=== PATIENT | female | born 1985 | race Caucasian/White ===

== ENCOUNTER 2017-10-18 20:35 | Emergency (ER) | END 2017-10-18 21:48 | disposition home or self-care (01) ==

== ENCOUNTER 2017-10-23 09:33 | Emergency (ER) | END 2017-10-23 13:15 | disposition home or self-care (01) ==

== ENCOUNTER 2018-06-09 15:49 | Emergency (ER) | payer MEDICAID ==
[~2018-06-09] VITALS: Ht 160 cm; Wt 82.6 kg
[~2018-06-09 15:49] MED LIST: CYCL10TA7 PO; HYDR-4011 PO; IBUP800T48 PO; IRON18TA PO; PRENAT PO
[2018-06-09 15:51] VITALS: Ht 160 cm; Wt 82.6 kg
--- NOTE | 2018-06-09 19:01 | ERD ---
ER Documentation Chief Complaint Chief Complaint ST x 3 days with cough HPI 33-year-old with no reported past medical or surgical history who presents with 3-day complaint of cough, sore throat, fever, generalized body pain, abdominal pain with coughing. No reported sick contacts. She states she had 2 children and at home were recently sick with flulike symptoms couple weeks ago. She otherwise denies chest pain, shortness of breath or dyspnea, nausea and vomiting, diarrhea, abdominal pain, urinary symptoms. BP and heart rate noted to be elevated on triage vitals but patient in NAD and denies any cardiac complaints at time of examination. ROS All systems reviewed and are negative except as per history of present illness. Medications Home Meds Active Scripts Azithromycin* (Zithromax*) 500 Mg Tablet, 500 MG PO DAILY for 3 Days, TAB Prov:ELISABETH HERNANDEZ PA-C 06/09/18 Hydrocodone/Acetaminophen (Dexter 5-325 Tablet) 1 Each Tablet, 1 TAB PO Q6H PRN for PAIN, #12 TAB Prov:JEN PARKINSON PA-C 10/23/17 Ibuprofen* (Motrin*) 800 Mg Tab, 800 MG PO Q6, #30 TAB Prov:YASMINE MORRIS PA-C 10/18/17 Cyclobenzaprine Hcl* (Cyclobenzaprine Hcl*) 10 Mg Tablet, 10 MG PO BID, #15 TAB Prov:YASMINE MORRIS PA-C 10/18/17 Reported Medications Iron (Iron) 18 Mg Tablet, 18 MG PO, TAB 01/01/16 Multivit/Min/Fol Ac/Iron/Pren* ( S*) 1 Tab Tab, 1 TAB PO DAILY, TAB 11/12/15 Allergies Allergies: Coded Allergies: No Known Drug Allergies (Verified Allergy, Unknown, 01/01/16) PMhx/Soc History of Surgery: No Anesthesia Reaction: No Hx Neurological Disorder: No Hx Respiratory Disorders: No Hx Cardiac Disorders: No Hx Psychiatric Problems: No Hx Miscellaneous Medical Probl: No Hx Alcohol Use: No Hx Substance Use: No Hx Tobacco Use: No FmHx Family History: No diabetes, No coronary disease, No other Physical Exam Vitals Vital Signs Date Temp Pulse Resp B/P (MAP) Pulse Ox O2 O2 Flow FiO2 Time Delivery Rate 06/09/18 99.3 115 19 143/79 98 Room Air 19:37 (100) 06/09/18 102.1 19:16 06/09/18 102.1 19:16 06/09/18 102.1 120 20 174/75 99 15:51 (108) Physical Exam I have reviewed the triage vital signs. Const: Well nourished, well developed, appears stated age Eyes: PERRL, no conjunctival injection HENT: NCAT, Neck supple without meningismus CV: RRR, Warm, well-perfused extremities RESP: CTAB, Unlabored respiratory effort, no wheezing, rales, rhonci GI: soft, non-tender, non-distended, no masses MSK: No gross deformities appreciated Skin: Warm, dry. No rashes Neuro: Alert,Sensation and motor function of extremities grossly intact. Psych: Appropriate mood and affect. Results 24 hrs Current Medications Medications Dose Sig/Atilio Start Time Status Last (Trade) Ordered Route PRN Stop Time Admin Dose Reason Admin 650 mg ONCE STAT 06/09/18 DC 06/09/18 Acetaminophen PO 19:10 19:16 (Tylenol 06/09/18 19:12 Tab) Ibuprofen 600 mg ONCE STAT 06/09/18 DC 06/09/18 (Motrin) PO 19:10 19:16 06/09/18 19:12 Procedures/MDM The patient's clinical presentation is very consistent with an acute viral syndrome. No evidence of pneumonia on Xray. No cardiac complaints. The patient is well-appearing without respiratory distress but noted with fever 102.1, elevated BP and tachycardia. The patient does not exhibit any clinical signs or symptoms concerning for serious bacterial infection or systemic illness. Based on history and clinical exam findings the patient does not appear to have evidence of urinary tract infection, bacteremia, sepsis, or meningitis.For these reasons I do not believe it is necessary to obtain laboratory testing at this time. ED course: ibuprofen, Tylenol Xray without acute findings Reassessment: Patient seen and examined serially in ED. Temperature improved post tylenol and ibuprofen. BP improved. Reports improvement in symptoms. We discussed follow up with the patient's primary care doctor within 24 to 48 hours as needed. We also discussed return to the emergency room for worsening symptoms or worsening condition. Plan: Despite negative xray will treat with Zpac in case this is an early pneumonia. Will not treat with tamiflu given out of treatment window. Have advised patient to follow up with PMD for continued health maintenance and care. Departure Diagnosis: Primary Impression: Viral respiratory illness Condition: Stable Patient Instructions: When You Have a Sore Throat ELISABETH HERNANDEZ PA-C Jun 09, 2018 19:01
[2018-06-09] MEDS ORDERED: IBUPROFEN 600 MG TAB PO STA (19:10)
[2018-06-09] MEDS ORDERED: ACETAMINOPHEN 325 MG TAB PO STA (19:10)
[2018-06-09 19:37] VITALS: BP 143/79; PULSE 115; RESP 19
[2018-06-09] MEDS ORDERED: AZIT500T3 PO (19:47)
== END 2018-06-09 20:18 | disposition home or self-care (01) ==
LOC: FTE 15:49
DX: J06.9 Acute upper respiratory infection, unspecified (principal)
CPT/HCPCS: 71045; Z7502; Z7610